=== PATIENT | male | born 1980 | race Two or more races ===

== ENCOUNTER 2020-12-12 01:18 | Emergency (ER) | payer MEDICAID ==
[~2020-12-12] VITALS: Ht 180.3 cm; Wt 81.6 kg
--- NOTE | 2020-12-12 01:30 | NUR ---
PATIENT C/O SHORTNESS OF BREATH. "I HAVE BEEN HAVING ON AND OFF HIVES SINCE I GOT THAT PFIZER VACCINE." LAST VACCINATION IS 3x WEEK AGO. PATIENT A/OX 4, RR LABORED, NO SIGNS OF SOB NOTED. PATIENT CONNCETED TO [employer] AND [employer].
[2020-12-12] MEDS ORDERED: diphenhydrAMINE HCL 50 MG/ML VIAL ONE (01:42)
[2020-12-12] MEDS ORDERED: methylPREDNISolone SOD SUCC 40 MG/ML VIAL ONE (01:42)
[2020-12-12] MEDS ORDERED: FAMOTIDINE/PF INJ 20 MG/2 ML VIAL IV ONE ×2 (01:43→02:00)
[2020-12-12] MEDS ORDERED: ONDANSETRON HCL/PF 4 MG/2 ML VIAL ONE (01:52)
[2020-12-12] MEDS ORDERED: ONDANSETRON HCL/PF 4 MG/2 ML VIAL IV ONE (02:00)
[2020-12-12] MEDS ORDERED: diphenhydrAMINE HCL 50 MG/ML VIAL IV ONE (02:00)
[2020-12-12] MEDS ORDERED: IV NS 0.9% 1,000 ML BAG IV ONE (02:00)
[2020-12-12] MEDS ORDERED: methylPREDNISolone SOD SUCC 125 MG/2ML VIAL IV ONE (02:00)
[2020-12-12] MEDS ORDERED: PRED50TA PO (02:51)
[2020-12-12 03:02] VITALS: BP 122/76
--- NOTE | 2020-12-12 03:02 | NUR ---
Patient discharged to home in stable condition. Written and verbal after care instructions given. Patient verbalizes understanding of instruction.
--- NOTE | 2020-12-12 03:02 | NUR ---
IV removed. Catheter intact and site benign. Pressure and 4x4 applied to site. No bleeding noted.
== END 2020-12-12 03:02 | disposition home or self-care (01) ==
LOC: ER 01:38
DX: T78.49XA Other allergy, initial encounter (principal); F10.129 Alcohol abuse with intoxication, unspecified; J45.909 Unspecified asthma, uncomplicated; Z79.899 Other long term (current) drug therapy; X58.XXXA Exposure to other specified factors, initial encounter; Y90.9 Presence of alcohol in blood, level not specified
CPT/HCPCS: 96361; 96374; 96375; 99284; J1200; J2405; J2920; J3490; J7030